=== PATIENT | male | born 2000 | race American Indian/Alaskan Native ===

== ENCOUNTER 2023-02-05 18:46 | Emergency (ER) | payer MEDICAID, SELFPAY ==
[2023-02-05 18:48] VITALS: BP 111/73; PULSE 98; RESP 15; TEMP 36.6; O2SAT 97
--- NOTE | 2023-02-05 19:13 | NUR.NOTE ---
Nursing Note: Assumed care of this patient at 1900. Received report from CT. Patient changed into safety clothing and belongings sheet filled out. Patient denies SI/HI at this time.
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
--- NOTE | 2023-02-05 20:10 | NUR.NOTE ---
Nursing Note: Patient's case resolution specialist Elizabeth arrived at 1999. She is at bedside speaking with the patient. Pending arrival of [facility] for psychiatric evaluation.
--- NOTE | 2023-02-05 21:09 | NUR.NOTE ---
Nursing Note: Patients belongings returned to patient.
--- NOTE | 2023-02-05 21:32 | NUR.NOTE ---
Pt has left the emergency room without discharge paper work. Pt was placed on care management list too establish care and to set up primary care. Per Moraima Grady pt is to be seen within 1-2 weeks.
== END 2023-02-05 21:37 | disposition home or self-care (01) ==
LOC: ER 21:30
PROVIDERS: Emergency Provider Registered Nurse Emergency
DX: S60.222A Contusion of left hand, initial encounter (principal); W22.8XXA Striking against or struck by other objects, initial encounter
CPT/HCPCS: 99283; 73130